=== PATIENT | male | born 1985 | race African-American/Black ===

== ENCOUNTER 2018-07-26 20:44 | Emergency (ER) | payer OTHER ==
[~2018-07-26] VITALS: Ht 182.9 cm; Wt 79.4 kg
[2018-07-26 22:03] VITALS: BP 122/64
== END 2018-07-26 22:37 | disposition home or self-care (01) ==
LOC: ER 20:50
DX: S61.511A Laceration without foreign body of right wrist, initial encounter (principal); W25.XXXA Contact with sharp glass, initial encounter; Y93.89 Activity, other specified; Y99.8 Other external cause status; Y92.89 Other specified places as the place of occurrence of the external cause
CPT/HCPCS: 12002